=== PATIENT | male | born 1965 | race African-American/Black ===

== ENCOUNTER 2017-01-08 21:39 | Inpatient (IN) | payer OTHER, MEDICAID ==
[2017-01-08 21:40] VITALS: O2SAT 99
[2017-01-08 22:06] LABS: I-STAT POTASSIUM 8.3 MMOL/L (3.5-4.9)
[2017-01-08] MEDS ORDERED: hydrALAZINE HCL 20 MG/ML VIAL ONE (22:07)
[2017-01-08 22:09] LABS: AUTOMATED NEUTROPHIL # 5.1 TH/MM3 (1.8-7.7); BASOPHIL # 0.1 TH/MM3 (0-0.2); BASOPHIL % 0.9 % (0.0-2.0); EOSINOPHIL # 0.3 TH/MM3 (0-0.4); EOSINOPHIL % 3.7 % (0.0-4.0); HEMATOCRIT 43.9 % (39.0-51.0); HEMO FLAGS DIFF FINAL; LYMPH % 23.5 % (9.0-44.0); LYMPHOCYTE # 1.8 TH/MM3 (1.0-4.8); MEAN CELL VOLUME 87.1 FL (80.0-100.0); MEAN CORPUSCULAR HEMOGLOBIN 30.2 PG (27.0-34.0); MEAN CORPUSCULAR HGB CONC 34.7 % (32.0-36.0); MONO % 6.4 % (0.0-8.0); NEUT % 65.5 % (16.0-70.0); PLATELET COUNT 168 TH/MM3 (150-450); RED BLOOD COUNT 5.04 MIL/MM3 (4.50-5.90); WHITE BLOOD COUNT 7.8 TH/MM3 (4.0-11.0)
[2017-01-08 22:14] LABS: APTT (PATIENT) 25.8 SEC (24.3-30.1); INTERNATIONAL NORMALIZED RATIO 1.1 RATIO
[2017-01-08] MEDS ORDERED: HYDROmorphone HCL PF 1 MG/ML VIAL ONE (22:27)
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
[2017-01-08] MEDS ORDERED: IOHEXOL 350 MG/ML 10 ML VIAL (for RAD DIAG) IV ONE (22:34)
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
[2017-01-08] MEDS ORDERED: LACTULOSE SYRUP 20 GM/30 ML CUP PO PRN (22:45)
[2017-01-08] MEDS ORDERED: SODIUM CHLORIDE 0.9% FLUSH 10 ML FLUSH IV FLUSH PRN (22:45)
[2017-01-08] MEDS: DOCUSATE SODIUM 50 MG/SENNA 8.6 MG TAB PO SCH (22:45)
[2017-01-08] MEDS ORDERED: MISCELLANEOUS NURSING INFORMATION XX SCH (22:45)
[2017-01-08] MEDS ORDERED: SENNOSIDES 8.6 MG TAB PO PRN (22:45)
[2017-01-08] MEDS ORDERED: CHLORHEXIDINE GLUCONATE 2 % 1 PACK (2 CLOTHS) TOP PRN (22:45)
[2017-01-08] MEDS ORDERED: MAGNESIUM HYDROXIDE SUSP 30 ML CUP PO PRN (22:45)
[2017-01-08] MEDS ORDERED: BISACODYL 10 MG SUPP RECTAL PRN (22:45)
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
--- NOTE | 2017-01-08 22:52 | RADRPT ---
EXAM DATE/TIME: 01/08/2017 22:06 [facility] COMPARISON: No previous studies available for comparison. INDICATIONS : IV CONTRAST: cc IV ORAL CONTRAST: RADIATION DOSE: CTDIvol (mGy) MEDICAL HISTORY : SURGICAL HISTORY : ENCOUNTER: ACUITY: PAIN SCALE: LOCATION: TECHNIQUE: Volumetric scanning of the abdomen and pelvis was performed. Using automated exposure control and ad justment of the mA and/or kV according to patient size, radiation dose was kept as low as reasonably achievable to obtain optimal diagnostic quality images. FINDINGS: There is abnormal fluid in the retroperitoneum predominantly on the right side and extending into the root of the mesentery in the right lower quadrant. No associated solid visceral injury is identified . Finding appears to be posterior to the pancreas. I suspect this represents a retroperitoneal hemorr ole and may extend into the root of the mesentery and right lower quadrant. There is trace free flui d present. No free air. Lung bases are clear. No acute bony abnormality. No acute findings in the liver, spleen, adrenals, kidneys. CONCLUSION: 1. Abnormal fluid in the retroperitoneum predominantly on the right side likely representing hemorrha ge that may extend into the root of the mesentery and right lower quadrant. No solid visceral injury identified. No free air. Trace free intraperitoneal fluid. Vernon Castillo MD on January 08, 2017 at 22:45 Board Certified Radiologist. This report was verified electronically.
[2017-01-08 22:55] VITALS: BP 175/101; PULSE 103; RESP 20; O2SAT 94
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
--- NOTE | 2017-01-08 22:56 | RADRPT ---
EXAM DATE/TIME: 01/08/2017 22:06 [facility] COMPARISON: No previous studies available for comparison. INDICATIONS : RADIATION DOSE: CTDIvol (mGy) MEDICAL HISTORY : SURGICAL HISTORY : ENCOUNTER: ACUITY: PAIN SCALE: LOCATION: TECHNIQUE: Volumetric scanning of the lumbar spine was performed. Multiplanar reconstructions in the sagittal, coronal and oblique axial planes were performed. Using automated exposure control and adjustment of the mA and/or kV according to patient size, radiation dose was kept as low as reasonably achievable t o obtain optimal diagnostic quality images. FINDINGS: VERTEBRAE: Normal vertebral body height. ALIGNMENT: No evidence of subluxation. T12-L1: The thecal sac has a normal diameter. No evidence of disc bulge or protrusion. The neural foramina are patent bilaterally. L1-L2: The thecal sac has a normal diameter. No evidence of disc bulge or protrusion. The neural foramina are patent bilaterally. L2-L3: The thecal sac has a normal diameter. No evidence of disc bulge or protrusion. The neural foramina are patent bilaterally. L3-L4: The thecal sac has a normal diameter. No evidence of disc bulge or protrusion. The neural foramina are patent bilaterally. L4-L5: The thecal sac has a normal diameter. No evidence of disc bulge or protrusion. The neural foramina are patent bilaterally. L5-S1: The thecal sac has a normal diameter. No evidence of disc bulge or protrusion. The neural foramina are patent bilaterally. CONCLUSION: 1. No acute traumatic injury identified in the lumbar spine. No significant canal stenosis. Vernon Castillo MD on January 08, 2017 at 22:53 Board Certified Radiologist. This report was verified electronically.
--- NOTE | 2017-01-08 23:01 | RADRPT ---
EXAM DATE/TIME: 01/08/2017 22:06 [facility] COMPARISON: No previous studies available for comparison. INDICATIONS : RADIATION DOSE: CTDIvol (mGy) MEDICAL HISTORY : SURGICAL HISTORY : ENCOUNTER: ACUITY: PAIN SCALE: LOCATION: TECHNIQUE: Volumetric scanning of the thoracic spine was performed. Multiplanar reconstructions in the sagittal , coronal and oblique axial planes were performed. Using automated exposure control and adjustment o f the mA and/or kV according to patient size, radiation dose was kept as low as reasonably achievable to obtain optimal diagnostic quality images. FINDINGS: The vertebral bodies of the thoracic spine are in normal alignment without evidence of subluxation. Vertebral body height is maintained. No fractures are seen. T1-T2: Normal. T2-T3: The thecal sac has a normal diameter. No evidence of disc bulge or protrusion. T3-T4: The thecal sac has a normal diameter. No evidence of disc bulge or protrusion. T4-T5: The thecal sac has a normal diameter. No evidence of disc bulge or protrusion. T5-T6: The thecal sac has a normal diameter. No evidence of disc bulge or protrusion. T6-T7: The thecal sac has a normal diameter. No evidence of disc bulge or protrusion. T7-T8: The thecal sac has a normal diameter. No evidence of disc bulge or protrusion. T8-T9: The thecal sac has a normal diameter. No evidence of disc bulge or protrusion. T9-T10: The thecal sac has a normal diameter. No evidence of disc bulge or protrusion. T10-T11: The thecal sac has a normal diameter. No evidence of disc bulge or protrusion. T11-T12: The thecal sac has a normal diameter. No evidence of disc bulge or protrusion. T12-L1: The thecal sac has a normal diameter. No evidence of disc bulge or protrusion. CONCLUSION: 1. Negative for acute traumatic injury in the thoracic spine. Vernon Castillo MD on January 08, 2017 at 22:56 Board Certified Radiologist. This report was verified electronically.
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
[2017-01-08 23:46] LABS: POTASSIUM 3.8 MEQ/L (3.5-5.1)
[2017-01-08] MEDS: SODIUM CHLOR 0.9% 1000 ML INJ 1,000 ML IV SCH (23:51)
[2017-01-09] VITALS (12 sets, daily range): BP systolic 156–185; BP diastolic 88–105; PULSE 70–106; RESP 15–25; TEMP 98.7–99.1; O2SAT 93–97
[2017-01-09] MEDS: CHLORHEXIDINE GLUCONATE 2 % 1 PACK (2 CLOTHS) TOP SCH (00:17)
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
[2017-01-09] MEDS: ONDANSETRON HCL 4 MG/2 ML VIAL IV PUSH PRN ×2 (02:45→12:30)
[2017-01-09 04:41] LABS: AUTOMATED NEUTROPHIL # 8.9 TH/MM3 (1.8-7.7); BASOPHIL # 0.1 TH/MM3 (0-0.2); BASOPHIL % 0.9 % (0.0-2.0); EOSINOPHIL % 0.2 % (0.0-4.0); HEMATOCRIT 40.9 % (39.0-51.0); HEMO FLAGS DIFF FINAL; LYMPH % 9.3 % (9.0-44.0); MEAN CELL VOLUME 88.3 FL (80.0-100.0); MEAN CORPUSCULAR HEMOGLOBIN 29.4 PG (27.0-34.0); MEAN CORPUSCULAR HGB CONC 33.3 % (32.0-36.0); NEUT % 82.6 % (16.0-70.0); PLATELET COUNT 174 TH/MM3 (150-450); RED BLOOD COUNT 4.63 MIL/MM3 (4.50-5.90); WHITE BLOOD COUNT 10.8 TH/MM3 (4.0-11.0)
[2017-01-09 05:01] LABS: BICARBONATE 23.9 MEQ/L (21.0-32.0); MAGNESIUM 1.8 MG/DL (1.5-2.5); POTASSIUM 4.1 MEQ/L (3.5-5.1)
[2017-01-09] MEDS: SODIUM CHLOR 0.9% 1000 ML INJ 1,000 ML IV SCH ×2 (06:33→14:20)
[2017-01-09] MEDS: PANTOPRAZOLE SODIUM 40 MG VIAL IV SCH (08:29)
[2017-01-09] MEDS: SODIUM CHLORIDE 0.9% FLUSH 10 ML FLUSH IV FLUSH SCH ×2 (08:29→20:02)
[2017-01-09] MEDS: DOCUSATE SODIUM 50 MG/SENNA 8.6 MG TAB PO SCH ×2 (08:29→20:01)
[2017-01-09] MEDS: LABETALOL HCL 100 MG/20 ML VIAL IV PRN ×2 (08:29→12:15)
[2017-01-09 09:36] LABS: AMPHETAMINE, URINE NEG (NEG); BARBITURATES, URINE NEG (NEG); COCAINE, URINE NEG (NEG)
[2017-01-09] MEDS ORDERED: METOPROLOL TARTRATE 50 MG TAB PO SCH (10:15)
[2017-01-09] MEDS ORDERED: HYDROmorphone HCL PF 1 MG/ML VIAL IV PUSH PRN (10:15)
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
[2017-01-09] MEDS: MULTIVITAMIN INJ 10 ML, THIAMINE INJ 100 MG, FOLIC ACID INJ 1 MG in SODIUM CHLORID 0.9%... IV SCH (12:00)
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
[2017-01-09] MEDS: HYDROmorphone HCL PF 1 MG/ML VIAL IV PUSH PRN ×4 (12:10→23:17)
[2017-01-09] MEDS: NICOTINE 14 MG/24 HR PATCH T-DERMAL SCH (13:00)
[2017-01-09] MEDS: METOPROLOL TARTRATE 5 MG/5 ML VIAL IV PUSH SCH ×2 (14:20→20:01)
[2017-01-09] MEDS: METHOCARBAMOL 500 MG TAB PO SCH ×2 (14:20→21:31)
[2017-01-09] MEDS ORDERED: ENALAPRILAT 1.25 MG/ML VIAL IV PRN (15:00)
[2017-01-09 16:44] LABS: HEMATOCRIT 38.3 % (39.0-51.0); REVIEW FLAG FINAL
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
[2017-01-09] MEDS ORDERED: SODIUM CHLOR 0.9% 1000 ML INJ 1,000 ML IV SCH (19:00)
[2017-01-09] MEDS: REMOVE OLD PATCH T-DERMAL SCH (20:38)
[2017-01-09] MEDS: diphenhydrAMINE HCL 25 MG CAP PO PRN (21:31)
[2017-01-09] MEDS ORDERED: LORazepam 0.5 MG TAB PO ONE (23:30)
[2017-01-10] VITALS (11 sets, daily range): BP systolic 143–177; BP diastolic 89–116; PULSE 72–85; RESP 12–30; TEMP 97.9–98.9; O2SAT 95–97
[2017-01-10] MEDS: METOPROLOL TARTRATE 5 MG/5 ML VIAL IV PUSH SCH ×2 (03:15→09:31)
[2017-01-10] MEDS: HYDROmorphone HCL PF 1 MG/ML VIAL IV PUSH PRN ×5 (03:29→21:28)
[2017-01-10] MEDS: CHLORHEXIDINE GLUCONATE 2 % 1 PACK (2 CLOTHS) TOP SCH (04:00)
[2017-01-10 04:10] LABS: AUTOMATED NEUTROPHIL # 5.7 TH/MM3 (1.8-7.7); BASOPHIL # 0.1 TH/MM3 (0-0.2); BASOPHIL % 0.8 % (0.0-2.0); EOSINOPHIL # 0.3 TH/MM3 (0-0.4); EOSINOPHIL % 3.1 % (0.0-4.0); HEMO FLAGS DIFF FINAL; LYMPH % 19.4 % (9.0-44.0); LYMPHOCYTE # 1.7 TH/MM3 (1.0-4.8); MEAN CELL VOLUME 88.3 FL (80.0-100.0); MEAN CORPUSCULAR HEMOGLOBIN 29.8 PG (27.0-34.0); MEAN CORPUSCULAR HGB CONC 33.8 % (32.0-36.0); MONO % 11.2 % (0.0-8.0); NEUT % 65.5 % (16.0-70.0); PLATELET COUNT 153 TH/MM3 (150-450); RED BLOOD COUNT 4.19 MIL/MM3 (4.50-5.90); RED CELL DISTRIBUTION WIDTH 14.3 % (11.6-17.2); WHITE BLOOD COUNT 8.7 TH/MM3 (4.0-11.0)
[2017-01-10 04:28] LABS: ALT (GPT) 50 U/L (12-78); ANION GAP 5 MEQ/L (5-15); AST (GOT) 64 U/L (15-37); BICARBONATE 28.2 MEQ/L (21.0-32.0); BLOOD UREA NITROGEN 7 MG/DL (7-18); CHLORIDE 108 MEQ/L (98-107); GLOMERULAR FILTRATION RATE 115 ML/MIN (>89); MAGNESIUM 1.9 MG/DL (1.5-2.5); POTASSIUM 3.6 MEQ/L (3.5-5.1); SODIUM (NA) 141 MEQ/L (136-145)
[2017-01-10 04:30] LABS: ALKALINE PHOSPHATASE 140 U/L (45-117); TOTAL BILIRUBIN ADULT 0.6 MG/DL (0.2-1.0)
[2017-01-10] MEDS: METHOCARBAMOL 500 MG TAB PO SCH ×3 (06:27→21:28)
[2017-01-10] MEDS: diphenhydrAMINE HCL 25 MG CAP PO PRN (06:56)
[2017-01-10] MEDS: SODIUM CHLORIDE 0.9% FLUSH 10 ML FLUSH IV FLUSH SCH ×2 (09:30→21:29)
[2017-01-10] MEDS: PANTOPRAZOLE SODIUM 40 MG VIAL IV SCH (09:30)
[2017-01-10] MEDS: DOCUSATE SODIUM 50 MG/SENNA 8.6 MG TAB PO SCH ×2 (09:30→21:28)
[2017-01-10] MEDS: NICOTINE 14 MG/24 HR PATCH T-DERMAL SCH (09:32)
[2017-01-10] MEDS ORDERED: cloNIDine HCL 0.2 MG/24 HR PATCH T-DERMAL SCH (12:00)
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
[2017-01-10] MEDS: MULTIVITAMIN INJ 10 ML, THIAMINE INJ 100 MG, FOLIC ACID INJ 1 MG in SODIUM CHLORID 0.9%... IV SCH (12:37)
[2017-01-10] MEDS: ATENOLOL 25 MG TAB PO SCH (12:37)
[2017-01-10] MEDS: LISINOPRIL 10 MG TAB PO SCH ×2 (12:37→21:28)
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
[2017-01-10] MEDS: REMOVE OLD PATCH T-DERMAL SCH (21:00)
[2017-01-10] MEDS ORDERED: MAGNESIUM HYDROXIDE SUSP 30 ML CUP PO SCH (21:00)
[2017-01-11] VITALS: BP 164/95; PULSE 87; RESP 20; TEMP 97.2; O2SAT 97
[2017-01-11] MEDS: CHLORHEXIDINE GLUCONATE 2 % 1 PACK (2 CLOTHS) TOP SCH (00:14)
[2017-01-11] MEDS: HYDROmorphone HCL PF 1 MG/ML VIAL IV PUSH PRN ×4 (00:39→10:53)
[2017-01-11] MEDS: METHOCARBAMOL 500 MG TAB PO SCH (04:46)
[2017-01-11 05:36] LABS: AUTOMATED NEUTROPHIL # 4.8 TH/MM3 (1.8-7.7); BASOPHIL # 0.1 TH/MM3 (0-0.2); EOSINOPHIL # 0.3 TH/MM3 (0-0.4); EOSINOPHIL % 4.3 % (0.0-4.0); HEMATOCRIT 35.2 % (39.0-51.0); HEMO FLAGS DIFF FINAL; LYMPH % 17.7 % (9.0-44.0); LYMPHOCYTE # 1.2 TH/MM3 (1.0-4.8); MEAN CELL VOLUME 89.1 FL (80.0-100.0); MEAN CORPUSCULAR HEMOGLOBIN 29.4 PG (27.0-34.0); MONO % 8.5 % (0.0-8.0); NEUT % 68.5 % (16.0-70.0); PLATELET COUNT 116 TH/MM3 (150-450); RED BLOOD COUNT 3.95 MIL/MM3 (4.50-5.90); RED CELL DISTRIBUTION WIDTH 13.7 % (11.6-17.2)
[2017-01-11 06:05] LABS: ANION GAP 11 MEQ/L (5-15); AST (GOT) 60 U/L (15-37); BICARBONATE 24.5 MEQ/L (21.0-32.0); BLOOD UREA NITROGEN 8 MG/DL (7-18); CHLORIDE 106 MEQ/L (98-107); GLOMERULAR FILTRATION RATE 118 ML/MIN (>89); MAGNESIUM 1.9 MG/DL (1.5-2.5); POTASSIUM 3.6 MEQ/L (3.5-5.1); SODIUM (NA) 141 MEQ/L (136-145)
[2017-01-11 06:10] LABS: ALKALINE PHOSPHATASE 144 U/L (45-117); ALT (GPT) 45 U/L (12-78); TOTAL BILIRUBIN ADULT 0.6 MG/DL (0.2-1.0)
[2017-01-11 07:48] VITALS: BP 137/80; PULSE 80; RESP 20; TEMP 98.7; O2SAT 96
[2017-01-11] MEDS ORDERED: LACTULOSE SYRUP 20 GM/30 ML CUP PO SCH (09:00)
[2017-01-11] MEDS: ATENOLOL 25 MG TAB PO SCH (09:13)
[2017-01-11] MEDS: DOCUSATE SODIUM 50 MG/SENNA 8.6 MG TAB PO SCH (09:13)
[2017-01-11] MEDS: LISINOPRIL 10 MG TAB PO SCH (09:13)
[2017-01-11] MEDS: NICOTINE 14 MG/24 HR PATCH T-DERMAL SCH (09:14)
[2017-01-11] MEDS: PANTOPRAZOLE SODIUM 40 MG VIAL IV SCH (09:18)
[2017-01-11] MEDS: SODIUM CHLORIDE 0.9% FLUSH 10 ML FLUSH IV FLUSH SCH (09:18)
[2017-01-11] MEDS ORDERED: PERC5TAB12 PO (11:06)
[2017-01-11] MEDS ORDERED: WALKER WHEELS/F1 MIS (11:07)
[2017-01-11] MEDS ORDERED: MAGN400S PO (11:08)
[2017-01-11] MEDS ORDERED: ATEN25TA PO (11:08)
[2017-01-11] MEDS ORDERED: SENN1TAB PO (11:08)
[2017-01-11] MEDS ORDERED: LISI10TA3 PO (11:08)
[2017-01-11 12:00] VITALS: BP 159/98; PULSE 81; RESP 19; TEMP 98.1; O2SAT 95
[2017-01-11] MEDS: MULTIVITAMIN INJ 10 ML, THIAMINE INJ 100 MG, FOLIC ACID INJ 1 MG in SODIUM CHLORID 0.9%... IV SCH (12:00)
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
== END 2017-01-11 13:49 | disposition home or self-care (01) | DRG 914 ==
LOC: NEPI 21:39 → NEDA 22:26 → EDBD 22:26 → N03A 23:20 → N07A 01-10 16:36
PROVIDERS: ADMIT Surgery Trauma Surgery; ATTEND Surgery Trauma Surgery
PROC: 0HQ1XZZ Repair Face Skin, External Approach (ICD-10-PCS; principal; 2017-01-08)
DX: S36.892A Contusion of other intra-abdominal organs, initial encounter (principal); I10 Essential (primary) hypertension; S01.81XA Laceration without foreign body of other part of head, initial encounter; S43.491A Other sprain of right shoulder joint, initial encounter; S80.211A Abrasion, right knee, initial encounter; S80.212A Abrasion, left knee, initial encounter; F10.129 Alcohol abuse with intoxication, unspecified; Y90.6 Blood alcohol level of 120-199 mg/100 ml; M54.2 Cervicalgia; M75.101 Unspecified rotator cuff tear or rupture of right shoulder, not specified as traumatic; V03.10XA Pedestrian on foot injured in collision with car, pick-up truck or van in traffic accident, initial encounter; Y92.410 Unspecified street and highway as the place of occurrence of the external cause
CPT/HCPCS: 12013; 70450; 70486; 71010; 71260; 72125; 72128; 72131; 72141; 72170; 73020; 73221; 73630; 74177; 80048; 80053; 80307; 82435; 82565; 82947; 83735; 84100; 84132; 84295; 84520; 85014; 85018; 85025; 85610; 85730; 86850; 86900; 86901; 87641; 90471; 94150; 96374; 96375; 99291; A0431-QM-SH; A0436-QM-SH; C9113; G0390; J0360; J1170; J2405; J3010; J3411; J7030; J7040; L0150; Q9967